=== PATIENT | female | born 1975 | race American Indian/Alaskan Native ===

== ENCOUNTER 2017-05-27 14:36 | Inpatient (IN) | payer MEDICAID, OTHER ==
--- NOTE | 2017-05-27 14:54 | Emergency Department Report ---
Chief Complaint: Abdominal Pain Stated Complaint: LOW ENERGY/PAIN IN CALF/ABD PAIN Time Seen by Provider: 05/27/17 14:50 - HPI History of Present Illness: PT states she is from [place]. PT states she was dx with anemia and fibroids in [place]. PT states she was told to take otc Iron pills. PT states she stopped taking the Iron pills. PT states she feels fatigued x 2 weeks. PT states lmp 7-5-17 Pt has hx of blood transfusion - ROS Review of Systems: + fatigue - vaginal bleeding now - Exam Physical Exam: PT looks well, non toxic. pale conjunctiva MSE screening note: Focused history and physical exam performed. Due to findings the following was ordered: labs ED Disposition for MSE Condition: Stable
[2017-05-27 15:44] LABS: Alanine Aminotransferase 6 units/L (7-56); Albumin 4.2 g/dL (3.9-5); Albumin/Globulin Ratio 1.4 %; Alkaline Phosphatase 40 units/L (35-129); Anion Gap 19 mmol/L; Blood Urea Nitrogen 6 mg/dL (7-17); Calcium 8.7 mg/dL (8.4-10.2); Carbon Dioxide 21 mmol/L (22-30); Chloride 103.4 mmol/L (98-107); Glucose 103 mg/dL (65-100); Potassium 3.8 mmol/L (3.6-5.0); Sodium 140 mmol/L (137-145); Total Protein 7.2 g/dL (6.3-8.2)
[2017-05-27 15:45] LABS: Platelet Count 569 K/mm3 (140-440); Red Blood Count 2.21 M/mm3 (3.65-5.03); White Blood Count 7.1 K/mm3 (4.5-11.0)
[2017-05-27 15:52] LABS: Mean Corpuscular Hemoglobin 14 pg (28-32)
[2017-05-27 15:53] LABS: Mean Corpuscular HGB Conc 27 % (30-34); Mean Corpuscular Volume < 50 fl (79-97); Red Cell Distribution Width 25.2 % (13.2-15.2)
[2017-05-27] MEDS ORDERED: NACL 0.9% 500 ML 500 ML IV ONE (16:08)
--- NOTE | 2017-05-27 16:09 | Emergency Department Report ---
ED General Adult HPI - General Chief complaint: Abdominal Pain Stated complaint: LOW ENERGY/PAIN IN CALF/ABD PAIN Time Seen by Provider: 05/27/17 14:50 Source: patient, RN notes reviewed Mode of arrival: Ambulatory Limitations: No Limitations - History of Present Illness Initial comments: This is a 41-year-old female. She is previously unknown to me. She does not have a primary care doctor. The patient recently moved here from [place]. She reports a past medical history of symptomatic anemia and fibroids. The patient reports that she was recently on a very heavy menstruation. She is not menstruating at this time. There is no hematemesis or bright red blood per rectum. There is no melena. The patient is brought to the hospital by her boyfriend for generalized weakness, fatigue and shortness of breath. -: Gradual Consistency: intermittent Improves with: rest Worsens with: movement Associated Symptoms: malaise, shortness of breath, weakness. denies: confusion , chest pain, cough, diaphoresis - Related Data Previous Rx's Medication Instructions Recorded Last Taken Type Docusate Sodium [Colace] 100 mg PO BID #60 capsule 05/28/17 Unknown Rx Ferrous Sulfate [Feosol 325 MG tab] 325 mg PO BID #60 tablet 05/28/17 Unknown Rx Allergies Allergy/AdvReac Type Severity Reaction Status Date / Time No Known Allergies Allergy Verified 05/27/17 14:55 ED Review of Systems ROS: Stated complaint: LOW ENERGY/PAIN IN CALF/ABD PAIN Other details as noted in HPI Constitutional: malaise, weakness. denies: fever Eyes: denies: vision change ENT: denies: epistaxis Respiratory: denies: cough Cardiovascular: dyspnea on exertion. denies: chest pain Gastrointestinal: denies: hematemesis, melena, hematochezia Genitourinary: as per HPI, abnormal menses Musculoskeletal: as per HPI Neurological: weakness ED Past Medical Hx - Past Medical History Previous Medical History?: Yes Additional medical history: anemia - Surgical History Past Surgical History?: No - Social History Smoking Status: Never Smoker Substance Use Type: None - Medications Home Medications: Home Medications Medication Instructions Recorded Confirmed Last Taken Type Docusate Sodium [Colace] 100 mg PO BID #60 capsule 05/28/17 Unknown Rx Ferrous Sulfate [Feosol 325 MG tab] 325 mg PO BID #60 tablet 05/28/17 Unknown Rx ED Physical Exam - General Limitations: No Limitations General appearance: alert, in no apparent distress - Head Head exam: Present: atraumatic, normocephalic - Eye Eye exam: Present: normal appearance, EOMI, other (bilateral conjunctiva are pale). Absent: nystagmus - ENT ENT exam: Present: normal exam, normal orophraynx, mucous membranes moist, normal external ear exam - Neck Neck exam: Present: normal inspection, full ROM. Absent: tenderness, meningismus - Respiratory Respiratory exam: Present: normal lung sounds bilaterally. Absent: respiratory distress, chest wall tenderness - Cardiovascular Cardiovascular Exam: Present: normal rhythm, tachycardia, normal heart sounds. Absent: systolic murmur, diastolic murmur, rubs, gallop - GI/Abdominal GI/Abdominal exam: Present: soft, normal bowel sounds. Absent: distended, tenderness, guarding, rebound, rigid, pulsatile mass - Extremities Exam Extremities exam: Present: normal inspection, full ROM, normal capillary refill. Absent: pedal edema, joint swelling, calf tenderness - Back Exam Back exam: Present: normal inspection, full ROM. Absent: tenderness, CVA tenderness (R), CVA tenderness (L), muscle spasm, paraspinal tenderness, vertebral tenderness - Neurological Exam Neurological exam: Present: alert, oriented X3, normal gait, other (Extraocular movements intact. Tongue midline. No facial droop. Facial sensation intact to light touch in the V1, V2, V3 distribution bilaterally. 5 and 5 strength in 4 extremities.. Sensation is intact to light touch in 4 extremities.). Absent : motor sensory deficit - Psychiatric Psychiatric exam: Present: normal affect, normal mood - Skin Skin exam: Present: warm, dry, intact, normal color. Absent: rash ED Course Vital Signs 05/27/17 05/27/17 05/27/17 14:51 16:06 16:11 Temperature 98.3 F Pulse Rate 128 H 99 H Respiratory 20 16 Rate Blood Pressure 132/71 121/75 O2 Sat by Pulse 100 100 98 Oximetry 05/27/17 05/27/17 05/27/17 16:20 16:21 16:30 Temperature Pulse Rate 102 H 98 H Respiratory 18 14 17 Rate Blood Pressure 121/75 114/61 O2 Sat by Pulse 100 100 Oximetry 05/27/17 05/27/17 05/27/17 16:36 16:41 16:51 Temperature 97.5 F L 97.8 F Pulse Rate 98 H 90 83 Respiratory 18 14 17 Rate Blood Pressure 114/61 114/61 114/61 O2 Sat by Pulse 98 100 Oximetry 05/27/17 05/27/17 05/27/17 17:00 17:11 17:21 Temperature 97.6 F Pulse Rate 82 82 86 Respiratory 15 18 21 Rate Blood Pressure 121/69 121/69 121/69 O2 Sat by Pulse 100 100 100 Oximetry 05/27/17 05/27/17 05/27/17 17:22 17:30 17:41 Temperature 97.8 F 98.1 F Pulse Rate 85 93 H 80 Respiratory 18 13 17 Rate Blood Pressure 121/69 132/80 132/80 O2 Sat by Pulse 100 100 100 Oximetry 05/27/17 17:45 Temperature 100.3 F H Pulse Rate 97 H Respiratory 18 Rate Blood Pressure O2 Sat by Pulse 100 Oximetry ED Medical Decision Making - Lab Data Result diagrams: 05/28/17 18:02 05/28/17 07:55 Vital Signs 05/27/17 14:51 Temperature 98.3 F Pulse Rate 128 H Respiratory 20 Rate Blood Pressure 132/71 O2 Sat by Pulse 100 Oximetry Lab Results 05/27/17 05/27/17 05/27/17 Range/Units 15:11 15:11 15:11 WBC 7.1 (4.5-11.0) K/mm3 RBC 2.21 L (3.65-5.03) M/mm3 Hgb 3.0 L* (10.1-14.3) gm/dl Hct 11.0 L* (30.3-42.9) % MCV < 50 L (79-97) fl MCH 14 L (28-32) pg MCHC 27 L (30-34) % RDW 25.2 H (13.2-15.2) % Plt Count 569 H (140-440) K/mm3 Sodium 140 (137-145) mmol/L Potassium 3.8 (3.6-5.0) mmol/L Chloride 103.4 (98-107) mmol/L Carbon Dioxide 21 L (22-30) mmol/L Anion Gap 19 mmol/L BUN 6 L (7-17) mg/dL Creatinine 0.6 L (0.7-1.2) mg/dL Estimated GFR > 60 ml/min BUN/Creatinine Ratio 10.00 % Glucose 103 H (65-100) mg/dL Calcium 8.7 (8.4-10.2) mg/dL Total Bilirubin 0.30 (0.1-1.2) mg/dL AST 12 (5-40) units/L ALT 6 L (7-56) units/L Alkaline Phosphatase 40 (35-129) units/L Total Protein 7.2 (6.3-8.2) g/dL Albumin 4.2 (3.9-5) g/dL Albumin/Globulin Ratio 1.4 % HCG, Qual Negative (Negative) Antibody Screen 05/27/17 Range/Units 15:13 WBC (4.5-11.0) K/mm3 RBC (3.65-5.03) M/mm3 Hgb (10.1-14.3) gm/dl Hct (30.3-42.9) % MCV (79-97) fl MCH (28-32) pg MCHC (30-34) % RDW (13.2-15.2) % Plt Count (140-440) K/mm3 Sodium (137-145) mmol/L Potassium (3.6-5.0) mmol/L Chloride (98-107) mmol/L Carbon Dioxide (22-30) mmol/L Anion Gap mmol/L BUN (7-17) mg/dL Creatinine (0.7-1.2) mg/dL Estimated GFR ml/min BUN/Creatinine Ratio % Glucose (65-100) mg/dL Calcium (8.4-10.2) mg/dL Total Bilirubin (0.1-1.2) mg/dL AST (5-40) units/L ALT (7-56) units/L Alkaline Phosphatase (35-129) units/L Total Protein (6.3-8.2) g/dL Albumin (3.9-5) g/dL Albumin/Globulin Ratio % HCG, Qual (Negative) Antibody Screen TNR - EKG Data -: EKG Interpreted by Me Rate: tachycardia - EKG Data When compared to previous EKG there are: previous EKG unavailable 05/27/17 16:42 EKG demonstrated sinus tachycardia, 110 bpm, normal intervals, not morphologically consistent with STEMI, QTC 454 ms - Medical Decision Making Differential diagnosis: Uterine fibroids, symptomatic anemia, menorrhagia, menometrorrhagia Assessment and plan: 41-year-old female with resolved menstruation, with symptomatic anemia. She requires packed red blood cell transfusion. Her abdomen is soft and benign. She reports that her most recent pelvic ultrasound was performed in 2014. She is amenable to packed red blood cell transfusion. 4 units of packed red blood cells are ordered. Given her current history, physical and laboratory studies, she requires hospital admission, but when she requires emergent imaging or gynecology consult at this time. Patient requires packed red blood cell resuscitation. The case was presented to the Hospital physician, Dr. Borrero, who graciously accepted the patient to his service for symptomatic anemia. Critical care attestation.: If time is entered above; I have spent that time in minutes in the direct care of this critically ill patient, excluding procedure time. ED Disposition Clinical Impression: Symptomatic anemia Disposition: -09 OP ADMIT IP TO THIS HOSP Is pt being admited?: No Condition: Good
--- NOTE | 2017-05-27 16:14 | History and Physical Report ---
History of Present Illness Chief complaint: I feel tired all the time History of present illness: 41 YO Female with Uterine Fibroids, Menorrhagia, Obesity presents to ED for evaluation. Pt states that she has experienced progressive weakness for the past month, with worsening symptoms over the past week. Pt acknowledges noncompliance with iron therapy. Pt denies fever, chills, CP, Palpitations, NVD , syncope, recent ill contacts, productive cough, unintentional weight loss, night sweats, prolonged travel/immobility, individual/family history of DVT/PE. Past History Past Medical History: other (uterine fibroids, menorrhagia, obesity) Past Surgical History: No surgical history, Other (reviewed) Social history: single. denies: smoking, alcohol abuse, prescription drug abuse Family history: diabetes, hypertension Medications and Allergies Allergies Allergy/AdvReac Type Severity Reaction Status Date / Time No Known Allergies Allergy Verified 05/27/17 14:55 Home Medications Medication Instructions Recorded Confirmed Last Taken Type No Known Home Medications [No 05/27/17 05/27/17 Unknown History Reported Home Medications] Review of Systems All systems: negative Cardiovascular: chest pain Exam - Constitutional Vitals: Temp Pulse Resp BP Pulse Ox 98.3 F 128 H 20 132/71 100 05/27/17 14:51 05/27/17 14:51 05/27/17 14:51 05/27/17 14:51 05/27/17 14:51 General appearance: Present: no acute distress, well-nourished - EENT Eyes: Present: PERRL (conjunctival pallor) ENT: hearing intact, clear oral mucosa - Neck Neck: Present: supple, normal ROM - Respiratory Respiratory effort: normal Respiratory: bilateral: CTA - Cardiovascular Heart Sounds: Present: S1 & S2. Absent: rub, click - Extremities Extremities: pulses symmetrical, No edema Peripheral Pulses: within normal limits - Abdominal General gastrointestinal: Present: soft, non-tender, non-distended, normal bowel sounds Female genitourinary: Present: normal - Integumentary Integumentary: Present: clear, warm, dry - Musculoskeletal Musculoskeletal: gait normal, strength equal bilaterally - Psychiatric Psychiatric: appropriate mood/affect, intact judgment & insight - Neurologic Neurologic: CNII-XII intact, moves all extremities Results - Labs CBC & Chem 7: 05/27/17 15:11 05/27/17 15:11 Labs: Abnormal lab results 05/27/17 05/27/17 05/27/17 Range/Units 15:11 15:11 15:13 RBC 2.21 L (3.65-5.03) M/mm3 Hgb 3.0 L* (10.1-14.3) gm/dl Hct 11.0 L* (30.3-42.9) % MCV < 50 L (79-97) fl MCH 14 L (28-32) pg MCHC 27 L (30-34) % RDW 25.2 H (13.2-15.2) % Plt Count 569 H (140-440) K/mm3 Carbon Dioxide 21 L (22-30) mmol/L BUN 6 L (7-17) mg/dL Creatinine 0.6 L (0.7-1.2) mg/dL Glucose 103 H (65-100) mg/dL ALT 6 L (7-56) units/L Crossmatch See Detail Assessment and Plan - Patient Problems (1) Blood loss anemia Current Visit: Yes Status: Acute Plan to address problem: PRBC transfusion, supportive care, repeat cbc, outpatient OFFICE MANAGER f/u for treatment of uterine fibroid (2) Iron deficiency Current Visit: Yes Status: Acute Plan to address problem: Iron replacement therapy (3) Obesity (BMI 30.0-34.9) Current Visit: Yes Status: Acute Plan to address problem: Pt counseled regarding increased physical acitivity, balanced diet (4) Symptomatic anemia Current Visit: Yes Status: Acute Plan to address problem: PRBC transfusion, iron replacement therapy, supportive care. (5) DVT prophylaxis Current Visit: Yes Status: Acute
--- NOTE | 2017-05-27 16:15 | Admit Criteria Form ---
Admission Criteria Documentation: ANEMIA, IRON DEFICIENCY OR UNSPECIFIED Clinical Indications for Inpatient Care (Place 'X' for any and all applicable criteria): Admission is indicated for ANY ONE of the following(1)(2)(3)(4)(5)(6)(7): [X] I. Inpatient admission required rather than observation care (Also use Anemia, Iron Deficiency or Unspecified: Observation Care guideline as appropriate) because of ANY ONE of the following: [] a) Hemodynamic instability that is severe or persistent [] b) Active bleeding that cannot be rapidly controlled [X] c) CVS symptoms (i.e., dyspnea, chest pain, heart failure) that are severe or persistent [] d) Neurologic symptoms (i.e., cognitive impairment, recurrent syncope or near syncope) that are severe or persistent [X] e) Cardiac arrhythmias of immediate concern [] f) Acute peripheral ischemia (e.g., pulseless, cool, mottled, or cyanotic extremity) [] g) High-risk low platelet count [] h) Acute renal failure [] i) Ongoing transfusion for blood loss (greater than 2 units) [] j) IV fluid to replace significant ongoing (eg, >24 hours) losses (> 3 L/m2 per day) [] k) Pulmonary artery catheter monitoring [] l) Supplemental oxygen or respiratory treatments for over 24 hours that are performable only in acute inpatient setting [] m) Immediate inpatient surgery [] n) Other condition, treatment or monitoring requiring inpatient admission [] II Active massive hemorrhage [] III. Active hemolysis with rapidly progressive anemia [A](6) Extended stay beyond goal length of stay may be needed for (17)(18) []a) Diagnosed cause of anemia requiring longer hospitalization (eg, active GI bleeding, immune hemolysis requiring electrophoresis, complications of malignancy requiring acute care []b) Continued emergent anemia indicators (23) []c) Transfusion reactions []d) Associated leukopenia or thrombocytopenia needing inpatient care []e) Active comorbidities (eg, renal failure, heart failure) The original [facility] Care Guidelines content created by [facility] Guidelines has been revised. The portions of the content which have been revised are identified through the use of italic text or in bold. [facility] Guidelines has neither reviewed nor approved the modified material. All other unmodified content is copyright [facility] Guidelines. Please see references footnoted in the original [facility] edition 2016 Admission Criteria Met: Yes
[2017-05-27] MEDS ORDERED: ZOFRAN IV PRN (16:16)
[2017-05-27] MEDS ORDERED: TYLENOL PO PRN (16:16)
[2017-05-27] MEDS ORDERED: DUONEB *Not for PRN Use IH (16:16)
[2017-05-27] MEDS ORDERED: DULCOLAX PR PRN (16:16)
[2017-05-27] MEDS ORDERED: MILK OF MAGNESIA PO PRN (16:16)
[2017-05-27] MEDS ORDERED: PROVENTIL IH PRN (16:56)
[2017-05-27 17:13] LABS: Basophils % (Manual) 0 % (0.0-1.8); Blastocytes % (Manual) 0 %; Eosinophils % (Manual) 0 % (0.0-4.3)
[2017-05-27 17:14] LABS: Anisocytosis 2+
[2017-05-27 17:15] LABS: Diff Status Complete; Hypochromasia 3+; Microcytosis 3+; Platelet Estimate Consistent w Auto; Poikilocytosis 1+
[2017-05-28 08:16] LABS: Hematocrit 20.9 % (30.3-42.9); Hemoglobin 6.7 gm/dl (10.1-14.3); Mean Corpuscular HGB Conc 32 % (30-34); Platelet Count 463 K/mm3 (140-440); Red Blood Count 3.17 M/mm3 (3.65-5.03); White Blood Count 8.5 K/mm3 (4.5-11.0)
[2017-05-28 08:17] LABS: Mean Corpuscular Hemoglobin 21 pg (28-32); Mean Corpuscular Volume 66 fl (79-97)
[2017-05-28 08:18] LABS: Red Cell Distribution Width 38.9 % (13.2-15.2)
[2017-05-28 08:28] LABS: Blood Urea Nitrogen 5 mg/dL (7-17); Calcium 8.3 mg/dL (8.4-10.2); Carbon Dioxide 21 mmol/L (22-30); Glucose 112 mg/dL (65-100)
[2017-05-28 08:29] LABS: Anion Gap 16 mmol/L; Chloride 105.4 mmol/L (98-107); Potassium 3.6 mmol/L (3.6-5.0); Sodium 139 mmol/L (137-145)
[2017-05-28] MEDS ORDERED: NACL 0.9% 500 ML 500 ML IV ONE (12:00)
--- NOTE | 2017-05-28 12:08 | Ultrasound Report ---
ULTRASOUND PELVIC COMPLETE HISTORY: Uterine fibroids, severe anemia. TECHNIQUE: Transabdominal and transvaginal ultrasound with color and spectral doppler interrogation. The uterus is enlarged measuring 17.8 x 12.0 x 14.0 cm. There is a very large heterogeneous fibroid in the posterior wall measuring up to 11.6 x 9.7 x 9.3 cm. No calcifications but there appear to be small areas of cystic degeneration. There is increased flow on color Doppler interrogation. The endometrial stripe is difficult to identify because of the large fibroid. No obvious endometrial abnormality. The ovaries are normal size, contour and echotexture. No adnexal cyst or mass. No pelvic fluid collection. IMPRESSION: Large uterine fibroid as described.
--- NOTE | 2017-05-28 12:37 | Consultation ---
History of Present Illness Consult date: 05/28/17 Requesting physician: LOY SHAIKH Reason for consult: menorrhagia, pelvic mass, other (uterine fibroids, severe anemia) History of present illness: This is a 41-year-old black female para [id number] who was admitted through the ER for symptomatic anemia. Patient was found to have a hemoglobin of 3.0 is being admitted for blood transfusion. Patient does have a history of leiomyomata with menorrhalgia. Her last menstrual period was 05/14/2017 last 4 days and patient states heavier than normal. Patient presently has no active bleeding. Patient states her fibroids discovered late 2015 she is previously been admitted to the hospital at home and [facility] for anemia and received a blood transfusion October 2016. Called to assess the patient's due to the large fibroids and her severe anemia. She presently without complaints has finished transfusion of 4 units of packed red blood cells and about to start her fifth unit. In bed comfortably boyfriends present at bedside Past History Past Medical History: blood transfusion (fibroids), other Past Surgical History: other (bilateral tubal ligation) COMMERCIAL CREDIT ANALYST History: fibroids, other (last Pap smear October 2016). denies: abnormal PAP smear Social history: single Medications and Allergies Allergies Allergy/AdvReac Type Severity Reaction Status Date / Time No Known Allergies Allergy Verified 05/27/17 14:55 Home Medications Medication Instructions Recorded Confirmed Last Taken Type No Known Home Medications [No 05/27/17 05/27/17 Unknown History Reported Home Medications] Active Meds: Active Medications Acetaminophen (Tylenol) 650 mg PO Q4H PRN PRN Reason: Pain MILD(1-3)/Fever >100.5/HELMS Last Admin: 05/27/17 21:43 Dose: 650 mg Albuterol (Proventil) 2.5 mg IH Q4HRT PRN PRN Reason: Shortness Of Breath Bisacodyl (Dulcolax) 10 mg ID QDAY PRN PRN Reason: Constipation unrelieved by MOM Magnesium Hydroxide (Milk Of Magnesia) 30 ml PO Q4H PRN PRN Reason: Constipation Ondansetron HCl (Zofran) 4 mg IV Q8H PRN PRN Reason: N/V unrelieved by Reglan Review of Systems All systems: negative Constitutional: fatigue, weakness - Vital Signs Vital signs: Vital Signs Temp Pulse Resp BP Pulse Ox 98.3 F 128 H 20 132/71 100 05/27/17 14:51 05/27/17 14:51 05/27/17 14:51 05/27/17 14:51 05/27/17 14:51 Temp Pulse Resp BP Pulse Ox 98.3 F 0 L 15 104/64 100 05/28/17 07:20 05/28/17 07:20 05/28/17 07:20 05/28/17 07:20 05/28/17 07:20 - Physical Exam Breasts: Positive: deferred Lungs: Positive: Normal air movement Uterus: Positive: other (palpable at her umbilicus) Extremities: Positive: normal Results Result Diagrams: 05/28/17 07:55 05/28/17 07:55 Abnormal lab results 05/28/17 05/28/17 Range/Units 07:55 07:55 RBC 3.17 L (3.65-5.03) M/mm3 Hgb 6.7 L D (10.1-14.3) gm/dl Hct 20.9 L D (30.3-42.9) % MCV 66 L D (79-97) fl MCH 21 L (28-32) pg RDW 38.9 H (13.2-15.2) % Plt Count 463 H (140-440) K/mm3 Carbon Dioxide 21 L (22-30) mmol/L BUN 5 L (7-17) mg/dL Creatinine 0.5 L (0.7-1.2) mg/dL Glucose 112 H (65-100) mg/dL Calcium 8.3 L (8.4-10.2) mg/dL All other labs normal. Assessment and Plan - Patient Problems (1) Intramural leiomyoma of uterus Current Visit: Yes Status: Acute Plan to address problem: Ultrasound results reviewed revealing a large leiomyomata. Patient present without any active bleeding. Discussed the nature of the disease. Patient is very familiar states that before moving from [place] the plan was to schedule hysterectomy patient still desires to have the surgery. This arrangement can be done outpatient basis. My office information was given to the patient to call once discharged from hospital to follow-up to have arrangements. Thank you very much for this consultation we'll sign off at this point please call if further assistance is needed (2) Blood loss anemia Current Visit: Yes Status: Acute (3) Obesity (BMI 30.0-34.9) Current Visit: Yes Status: Acute (4) Symptomatic anemia Current Visit: Yes Status: Acute
--- NOTE | 2017-05-28 15:18 | Discharge Summary ---
Providers - Providers Date of Admission: 05/27/17 16:16 Date of discharge: 05/28/17 Attending physician: LOY SHAIKH 05/28/17 08:50 Consult to Physician [CONS] Routine Consulting Provider: RAYO RAMOS Reason For Exam: Uterine fibroids, Hgb 3.0 Place consult to:: DR. RAMOS Notified:: DR. RAMOS Phone number called:: [phone] Was contact made?: Yes If yes, spoke with:: JUDIT Time called:: 09:31 Comment:: ANA MARÍA NOTIFIED Primary care physician: REC[facility] CENTER SPECIALIST Hospitalization Condition: Good Disposition: DC-01 TO HOME OR SELFCARE - Discharge Diagnoses (1) Abnormal uterine bleeding (AUB) Status: Acute (2) Uterine fibroid Status: Acute Qualifiers: Uterine leiomyoma location: U (3) Iron deficiency Status: Acute (4) Obesity (BMI 30.0-34.9) Status: Acute (5) Symptomatic anemia Status: Acute Exam - Constitutional Vitals: Temp Pulse Resp BP Pulse Ox 97.8 F 78 16 107/60 100 05/28/17 14:20 05/28/17 14:20 05/28/17 14:20 05/28/17 14:20 05/28/17 14:20 Plan Activity: no restrictions Diet: low fat, low cholesterol Additional Instructions: 1.Follow up with PCP in 1 week. 2.Follow up with Dr. Ramos in 1 week Follow up with: PRIMARY CARE, [Primary Care Provider] - 3-5 Days Prescriptions: Docusate Sodium [Colace] 100 mg PO BID #60 capsule Ferrous Sulfate [Feosol 325 MG tab] 325 mg PO BID #60 tablet
[2017-05-28 18:16] LABS: Hematocrit 26.7 % (30.3-42.9); Hemoglobin 8.9 gm/dl (10.1-14.3)
[2017-05-28 18:47] VITALS: BP 114/60
== END 2017-05-28 20:45 | disposition home or self-care (01) | DRG 760 ==
LOC: ED 14:36 → 3A 16:16
PROVIDERS: ADMIT Internal Medicine; ATTEND Internal Medicine
PROC: 30233N1 Transfusion of Nonautologous Red Blood Cells into Peripheral Vein, Percutaneous Approach (ICD-10-PCS; principal; 2017-05-27)
DX: D25.1 Intramural leiomyoma of uterus (principal); D62 Acute posthemorrhagic anemia; E66.9 Obesity, unspecified; Z87.42 Personal history of other diseases of the female genital tract; Z91.19 Patient's noncompliance with other medical treatment and regimen; Z83.3 Family history of diabetes mellitus; Z82.49 Family history of ischemic heart disease and other diseases of the circulatory system; Z98.51 Tubal ligation status; Z68.33 Body mass index [BMI] 33.0-33.9, adult
CPT/HCPCS: 36415; 76856; 80048; 80053; 84703; 85007; 85014; 85018; 85025; 85027; 86850; 86900; 86901; 86920; 93005; 93010; 94760; 99285; J7040; P9016

== ENCOUNTER 2018-01-30 13:24 | Emergency (ER) | payer SELFPAY ==
[2018-01-30 14:18] LABS: Platelet Count 499 K/mm3 (140-440); Red Blood Count 2.77 M/mm3 (3.65-5.03)
[2018-01-30 14:24] LABS: Hemoglobin 3.7 gm/dl (10.1-14.3)
[2018-01-30 14:25] LABS: Hematocrit 13.7 % (30.3-42.9); Mean Corpuscular HGB Conc 27 % (30-34); Mean Corpuscular Hemoglobin 13 pg (28-32); Mean Corpuscular Volume 50 fl (79-97); Red Cell Distribution Width 29.6 % (13.2-15.2)
[2018-01-30] MEDS ORDERED: NACL 0.9% 500 ML 500 ML IV ONE (14:42)
[2018-01-30 15:23] LABS: INR 0.99 (0.87-1.13); Partial Thromboplastin Time 25.4 Sec. (24.2-36.6)
[2018-01-30 15:30] LABS: Iron 12 ug/dL (37-170); Total Iron Binding Capacity 475 mcg/dL (250-450)
[2018-01-30 15:31] LABS: Alanine Aminotransferase 6 units/L (7-56); Albumin 4.3 g/dL (3.9-5); BUN/Creatinine Ratio 14; Blood Urea Nitrogen 7 mg/dL (7-17); Calcium 8.7 mg/dL (8.4-10.2); Hemolysis Index 3
[2018-01-30 15:34] LABS: Bilirubin,Direct < 0.2 mg/dL (0-0.2)
--- NOTE | 2018-01-30 16:19 | Emergency Department Report ---
ED General Adult HPI - General Chief complaint: Dizziness Stated complaint: DIZZINESS Time Seen by Provider: 01/30/18 14:30 Source: patient Mode of arrival: Ambulatory Limitations: No Limitations - History of Present Illness Initial comments: Patient complains of weakness and exertional dyspnea for the last several days if not weeks. She states that she hasn't had any recent heavy vaginal bleeding and is not bleeding now. She seems to be in denial with respect to the degree of dysfunctional bleeding that she has had in the past. She wants to blame her anemia on "fibroids". She has been previously diagnosed with dysfunctional uterine bleeding and states she was transfused about a year ago here. - Related Data Previous Rx's Medication Instructions Recorded Last Taken Type Docusate Sodium [Colace] 100 mg PO BID #60 capsule 05/28/17 Unknown Rx Ferrous Sulfate [Feosol 325 MG tab] 325 mg PO BID #60 tablet 05/28/17 Unknown Rx Allergies Allergy/AdvReac Type Severity Reaction Status Date / Time No Known Allergies Allergy Verified 05/27/17 14:55 ED Review of Systems ROS: Stated complaint: DIZZINESS Other details as noted in HPI Constitutional: weakness. denies: chills, fever Eyes: denies: eye pain, eye discharge, vision change ENT: denies: ear pain, throat pain Respiratory: SOB with exertion. denies: cough, shortness of breath (not currently at rest), wheezing Cardiovascular: denies: chest pain, palpitations Endocrine: no symptoms reported Gastrointestinal: denies: abdominal pain, nausea, diarrhea Genitourinary: as per HPI, abnormal menses. denies: urgency, dysuria, discharge Musculoskeletal: denies: back pain, joint swelling, arthralgia Skin: denies: rash, lesions Neurological: denies: headache, weakness, paresthesias Psychiatric: denies: anxiety, depression Hematological/Lymphatic: denies: easy bleeding, easy bruising ED Past Medical Hx - Past Medical History Hx Congestive Heart Failure: No Hx Diabetes: No Hx Asthma: No Hx COPD: No Additional medical history: anemia - Surgical History Past Surgical History?: No - Social History Smoking Status: Never Smoker Substance Use Type: None - Medications Home Medications: Home Medications Medication Instructions Recorded Confirmed Last Taken Type Docusate Sodium [Colace] 100 mg PO BID #60 capsule 05/28/17 Unknown Rx Ferrous Sulfate [Feosol 325 MG tab] 325 mg PO BID #60 tablet 05/28/17 Unknown Rx ED Physical Exam - General Limitations: No Limitations General appearance: alert, in no apparent distress - Head Head exam: Present: atraumatic, normocephalic - Eye Eye exam: Present: normal appearance, other (conjunctival pallor). Absent: scleral icterus - ENT ENT exam: Present: mucous membranes moist - Neck Neck exam: Present: normal inspection. Absent: tenderness, meningismus - Respiratory Respiratory exam: Present: normal lung sounds bilaterally. Absent: respiratory distress - Cardiovascular Cardiovascular Exam: Present: regular rate, normal rhythm. Absent: systolic murmur, diastolic murmur, rubs, gallop - GI/Abdominal GI/Abdominal exam: Present: soft, normal bowel sounds. Absent: distended, tenderness, guarding, rebound, rigid - Extremities Exam Extremities exam: Present: normal inspection - Back Exam Back exam: Present: normal inspection - Neurological Exam Neurological exam: Present: alert, oriented X3, CN II-XII intact. Absent: motor sensory deficit - Psychiatric Psychiatric exam: Present: normal affect, normal mood - Skin Skin exam: Present: warm, dry, intact, normal color. Absent: rash ED Course Vital Signs 01/30/18 01/30/18 13:27 14:50 Temperature 98.2 F Pulse Rate 111 H 106 H Respiratory 16 16 Rate Blood Pressure 115/69 Blood Pressure 136/83 [Left] O2 Sat by Pulse 100 100 Oximetry - Reevaluation(s) Reevaluation #1: Transfusion of 2 units of packed cells has been ordered. Patient remains clinically stable. She is admitted by Dr. Borrero to the hospitalist service further care and evaluation. 01/30/18 16:21 ED Medical Decision Making - Lab Data Result diagrams: 01/30/18 13:44 01/30/18 14:42 Laboratory Results - last 24 hr 01/30/18 01/30/18 01/30/18 13:44 14:42 14:42 WBC 6.8 RBC 2.77 L Hgb 3.7 L* Hct 13.7 L* MCV 50 L MCH 13 L MCHC 27 L RDW 29.6 H Plt Count 499 H Percent Retic PT 13.6 INR 0.99 APTT 25.4 Sodium 138 Potassium 3.7 Chloride 102.4 Carbon Dioxide 20 L Anion Gap 19 BUN 7 Creatinine 0.5 L Estimated GFR > 60 BUN/Creatinine Ratio 14 Glucose 91 Calcium 8.7 Magnesium Iron TIBC Total Bilirubin 0.30 Direct Bilirubin < 0.2 Indirect Bilirubin 0.1 AST 15 ALT 6 L Alkaline Phosphatase 36 NT-Pro-B Natriuret Pep Total Protein 7.9 Albumin 4.3 Albumin/Globulin Ratio 1.2 Vitamin B12 Folate Blood Type Antibody Screen Crossmatch 01/30/18 01/30/18 01/30/18 14:42 14:42 14:42 WBC RBC Hgb Hct MCV MCH MCHC RDW Plt Count Percent Retic 2.45 PT INR APTT Sodium Potassium Chloride Carbon Dioxide Anion Gap BUN Creatinine Estimated GFR BUN/Creatinine Ratio Glucose Calcium Magnesium 2.00 Iron TIBC Total Bilirubin Direct Bilirubin Indirect Bilirubin AST ALT Alkaline Phosphatase NT-Pro-B Natriuret Pep Total Protein Albumin Albumin/Globulin Ratio Vitamin B12 521.6 Folate Blood Type Antibody Screen Crossmatch 01/30/18 01/30/18 01/30/18 14:42 14:42 14:42 WBC RBC Hgb Hct MCV MCH MCHC RDW Plt Count Percent Retic PT INR APTT Sodium Potassium Chloride Carbon Dioxide Anion Gap BUN Creatinine Estimated GFR BUN/Creatinine Ratio Glucose Calcium Magnesium Iron 12 L TIBC 475 H Total Bilirubin Direct Bilirubin Indirect Bilirubin AST ALT Alkaline Phosphatase NT-Pro-B Natriuret Pep 26.33 Total Protein Albumin Albumin/Globulin Ratio Vitamin B12 Folate 17.75 Blood Type Antibody Screen Crossmatch 01/30/18 14:42 WBC RBC Hgb Hct MCV MCH MCHC RDW Plt Count Percent Retic PT INR APTT Sodium Potassium Chloride Carbon Dioxide Anion Gap BUN Creatinine Estimated GFR BUN/Creatinine Ratio Glucose Calcium Magnesium Iron TIBC Total Bilirubin Direct Bilirubin Indirect Bilirubin AST ALT Alkaline Phosphatase NT-Pro-B Natriuret Pep Total Protein Albumin Albumin/Globulin Ratio Vitamin B12 Folate Blood Type A POSITIVE Antibody Screen Negative Crossmatch See Detail - EKG Data -: EKG Interpreted by Vt EKG shows normal: sinus rhythm, axis, intervals, QRS complexes, ST-T waves Rate: normal - EKG Data Interpretation: normal EKG - Radiology Data Radiology results: report reviewed (chest x-ray no acute process) Critical Care Time: Yes Critical care time in (mins) excluding proc time.: 40 Critical care attestation.: If time is entered above; I have spent that time in minutes in the direct care of this critically ill patient, excluding procedure time. ED Disposition Clinical Impression: Symptomatic anemia, Hx of dysfunctional uterine bleeding, Blood loss anemia Disposition: OP ADMIT IP TO THIS HOSP Is pt being admited?: Yes Does the pt Need Aspirin: No Condition: Stable Referrals: PRIMARY CARE, [Primary Care Provider] - 3-5 Days Time of Disposition: 16:23
--- NOTE | 2018-01-30 16:31 | XRay Report ---
FINAL REPORT EXAM: XR CHEST 1V AP HISTORY: VINOD TECHNIQUE: AP portable view of the chest. PRIORS: None. FINDINGS: The cardiac silhouette is enlarged. Pulmonary vascularity appears normal. The lungs are clear. The bones and soft tissues are unremarkable. IMPRESSION: Cardiomegaly. No evidence of acute CHF.
[2018-01-30 17:37] LABS: Bacteria,Urine 1+ /HPF (Negative); Bilirubin,Urine NEG (Negative); Blood,Urine NEG (Negative); Color,Urine Yellow (Yellow); Mucus,Urine FEW /HPF; Protein,Urine <15 mg/dL mg/dL (Negative); Urobilinogen,Urine < 2.0 mg/dL (<2.0)
[2018-01-30 17:39] LABS: HCG Qualitative,Urine Negative (Negative)
[2018-01-30] MEDS ORDERED: NACL 0.9% 500 ML 500 ML ONE (18:05)
--- NOTE | 2018-01-30 19:26 | History and Physical Report ---
History of Present Illness Chief complaint: Im weak History of present illness: 42 YO Female with Uterine Fibroids, Menorrhagia, Obesity presents to ED for evaluation. Pt states that she has experienced progressive weakness for the past month, with worsening symptoms over the past week. Pt acknowledges noncompliance with iron therapy. Pt denies fever, chills, CP, Palpitations, NVD , syncope, recent ill contacts, productive cough, unintentional weight loss, night sweats, prolonged travel/immobility, individual/family history of DVT/PE. Pt seen and evaluated in ED and found to have anemia. Pt transfused with PRBC. Pt medically optimized and back to usual state of health. Pt discharged home and instructed to f/u with [facility] for intervention. Past History Past Medical History: other (fibroids, obesity) Past Surgical History: No surgical history, Other (reviewed) Social history: single Family history: diabetes, hypertension Medications and Allergies Allergies Allergy/AdvReac Type Severity Reaction Status Date / Time No Known Allergies Allergy Verified 05/27/17 14:55 Home Medications Medication Instructions Recorded Confirmed Last Taken Type Docusate Sodium [Colace] 100 mg PO BID #60 capsule 05/28/17 Unknown Rx Ferrous Sulfate [Feosol 325 MG tab] 325 mg PO BID #60 tablet 01/30/18 Unknown Rx Review of Systems Constitutional: weakness, no weight gain, no fever, no chills Ears, nose, mouth and throat: no ear pain, no ear discharge, no tinnitis, no decreased hearing, no nose pain Breasts: no change in shape, no swelling, no mass Cardiovascular: no chest pain, no orthopnea, no palpitations, no rapid/ irregular heart beat, no edema, no syncope Respiratory: no cough, no cough with sputum, no excessive sputum, no hemoptysis , no shortness of breath Gastrointestinal: no nausea, no vomiting, no diarrhea, no constipation, no change in bowel habits Genitourinary Female: menorrhagia, no pelvic pain, no flank pain Rectal: no pain, no incontinence, no bleeding Musculoskeletal: no neck stiffness, no neck pain, no shooting arm pain, no arm numbness/tingling, no low back pain, no shooting leg pain, no leg numbness/ tingling Integumentary: no rash, no pruritis, no redness, no sores, no wounds, no jaundice, no boils Neurological: no transient paralysis, no paralysis, no weakness, no parathesias , no numbness, no tingling, no seizures, no syncope Psychiatric: no memory loss, no change in sleep habits, no sleep disturbances, no insomnia, no hypersomnia, no change in appetite, no change in libido Endocrine: no cold intolerance, no heat intolerance, no polyphagia, no excessive thirst, no polydipsia, no polyuria, no nocturia, no excessive sweating Hematologic/Lymphatic: no easy bruising, no easy bleeding, no lymphadenopathy, no lymphedema Allergic/Immunologic: no urticaria, no allergic rhinitis, no wheezing, no persistent infections, no anaphylaxis Exam - Constitutional Vitals: Temp Pulse Resp BP Pulse Ox 98.4 F 96 H 16 115/61 100 01/30/18 18:46 01/30/18 18:46 01/30/18 18:46 01/30/18 18:46 01/30/18 18:46 General appearance: Present: no acute distress, well-nourished - EENT Eyes: Present: PERRL ENT: hearing intact, clear oral mucosa - Neck Neck: Present: supple, normal ROM - Respiratory Respiratory effort: normal Respiratory: bilateral: CTA - Cardiovascular Heart Sounds: Present: S1 & S2. Absent: rub, click - Extremities Extremities: pulses symmetrical, No edema Peripheral Pulses: within normal limits - Abdominal General gastrointestinal: Present: soft, non-tender, non-distended, normal bowel sounds Female genitourinary: Present: normal - Integumentary Integumentary: Present: clear, warm, dry - Musculoskeletal Musculoskeletal: gait normal, strength equal bilaterally - Psychiatric Psychiatric: appropriate mood/affect, intact judgment & insight - Neurologic Neurologic: CNII-XII intact, moves all extremities Results - Labs CBC & Chem 7: 01/30/18 13:44 01/30/18 14:42 Labs: Abnormal lab results 01/30/18 01/30/18 01/30/18 Range/Units 13:44 14:42 14:42 RBC 2.77 L (3.65-5.03) M/mm3 Hgb 3.7 L* (10.1-14.3) gm/dl Hct 13.7 L* (30.3-42.9) % MCV 50 L (79-97) fl MCH 13 L (28-32) pg MCHC 27 L (30-34) % RDW 29.6 H (13.2-15.2) % Plt Count 499 H (140-440) K/mm3 Carbon Dioxide 20 L (22-30) mmol/L Creatinine 0.5 L (0.7-1.2) mg/dL Iron 12 L (37-170) ug/dL TIBC 475 H (250-450) mcg/dL ALT 6 L (7-56) units/L Crossmatch 01/30/18 Range/Units 14:42 RBC (3.65-5.03) M/mm3 Hgb (10.1-14.3) gm/dl Hct (30.3-42.9) % MCV (79-97) fl MCH (28-32) pg MCHC (30-34) % RDW (13.2-15.2) % Plt Count (140-440) K/mm3 Carbon Dioxide (22-30) mmol/L Creatinine (0.7-1.2) mg/dL Iron (37-170) ug/dL TIBC (250-450) mcg/dL ALT (7-56) units/L Crossmatch See Detail Assessment and Plan - Patient Problems (1) Abnormal uterine bleeding (AUB) Current Visit: No Status: Acute Plan to address problem: PRBC transfusion, D/C home, F/u [facility] at discharge, F/U pcp 1wk.
[2018-01-30] MEDS ORDERED: NACL 0.9% 500 ML 500 ML IV SCH (19:52)
[2018-01-31 00:56] VITALS: BP 125/67
== END 2018-01-31 01:05 | disposition admitted as inpatient to this hospital (09) ==
LOC: ED 13:24
DX: D50.0 Iron deficiency anemia secondary to blood loss (chronic) (principal); D64.9 Anemia, unspecified; N93.8 Other specified abnormal uterine and vaginal bleeding
CPT/HCPCS: 36415; 71045; 80048; 80074; 81001; 81025; 82607; 82747; 83550; 83735; 83880; 85027; 85045; 85610; 85730; 86850; 86900; 86901; 86920; 93005; 93010; 99291; J7040; P9016; 96360